=== PATIENT | female | born 1965 | race Caucasian/White ===

== ENCOUNTER 2016-05-12 11:30 | Outpatient (CLI) | payer OTHER | END 2016-05-12 11:31 | disposition home or self-care (01) | DX: G40.919 Epilepsy, unspecified, intractable, without status epilepticus (principal) ==

== ENCOUNTER 2016-06-27 08:00 | Outpatient (CLI) | payer OTHER | END 2016-06-27 08:01 | disposition home or self-care (01) | DX: R19.7 Diarrhea, unspecified (principal) ==

== ENCOUNTER 2016-08-24 14:54 | Outpatient (CLI) | payer OTHER ==
--- NOTE | 2016-08-25 07:30 | Mammography Report ---
DIGITAL BILATERAL MAMMOGRAM: 08/24/2016 CLINICAL HISTORY: A 51-year-old female in for routine screening mammogram. COMPARISON: 08/29/2013 TECHNIQUE: Craniocaudad and oblique lateral views of each breast were obtained. FINDINGS: The breasts are almost entirely composed of fat. Scattered benign-appearing calcification s are noted in each breast. No significant clusters of calcification are seen. No significant celina s are noted. No significant change is seen. IMPRESSION: BREASTS APPEAR RADIOGRAPHICALLY BENIGN. BIRADS CATEGORY 1 - NEGATIVE. RECOMMENDATIONS: Annual bilateral screening mammography. STANDARD QUALIFYING STATEMENTS 1. This examination was reviewed with the aid of Computer-Aided Detection (CAD). 2. A negative or benign imaging report should not delay biopsy if clinically suspicious findings are present. Consider surgical consultation if warranted. More than 5% of cancers are not identified by i maging. 3. Dense breasts may obscure an underlying neoplasm. 07:9:00 JOB #: [id number] EXT JOB #:[id number]
== END 2016-08-24 14:55 | disposition home or self-care (01) ==
LOC: DI.N 14:54
PROVIDERS: ATTEND Family Medicine
DX: Z12.31 Encounter for screening mammogram for malignant neoplasm of breast (principal)
CPT/HCPCS: 77067

== ENCOUNTER 2017-07-05 08:00 | Outpatient (CLI) | payer OTHER | END 2017-07-05 08:01 | disposition home or self-care (01) | LOC: LAB.WCP 08:00 | PROVIDERS: ATTEND Psychiatry & Neurology Vascular Neurology | DX: G40.219 Localization-related (focal) (partial) symptomatic epilepsy and epileptic syndromes with complex partial seizures, intractable, without status epilepticus (principal) | CPT/HCPCS: 36415; 80175 ==

== ENCOUNTER 2018-04-01 08:00 | Outpatient (CLI) | payer OTHER ==
[2018-04-01 19:02] LABS: BASOPHILS % (AUTO) 0.7 %; EOSINOPHILS # (AUTO) 0.1 10^3/uL (0.0-0.7); EOSINOPHILS % (AUTO) 1.9 %; HGB - HEMOGLOBIN 14.5 g/dL (12.0-16.0); LYMPHOCYTES # (AUTO) 2.3 10^3/uL (1.5-3.5); LYMPHOCYTES % (AUTO) 33.3 %; MEAN CORPUSCULAR HEMOGLOBIN 31.4 pg (27.0-31.0); MEAN CORPUSCULAR HGB CONC 33.4 g/dL (32.0-36.0); MEAN PLATELET VOLUME 8.1 fL (7.9-10.8); MONOCYTES # (AUTO) 0.4 10^3/uL (0.0-1.0); MONOCYTES % (AUTO) 5.9 %; NEUTROPHILS % (AUTO) 58.2 %; PLT - PLATELET COUNT 235 10^3/uL (130-450); RED BLOOD COUNT 4.61 10^6/uL (4.20-5.40); RED CELL DISTRIBUTION WIDTH 13.6 % (12.0-15.0); WHITE BLOOD COUNT 6.9 x10^3/uL (4.8-10.8)
[2018-04-01 19:47] LABS: ALBUMIN 4.2 g/dL (3.2-5.5); ALBUMIN/GLOBULIN RATIO 1.4 (1.0-2.2); ALKALINE PHOSPHATASE 115 IU/L (42-121); ALT ALANINE AMINOTRANSFERASE 24 IU/L (10-60); AST ASPARTATE AMINOTRANSFERASE 48 IU/L (10-42); BILIRUBIN,TOTAL 0.9 mg/dL (0.2-1.0); BUN - BLOOD UREA NITROGEN 11 mg/dL (6-20); CALCIUM 9.5 mg/dL (8.5-10.3); CARBON DIOXIDE - CO2 25 mmol/L (21-32); CHLORIDE 102 mmol/L (101-111); CHOL/HDL RATIO 5.4 (<4.4); CHOLESTEROL 223 mg/dL; CREATININE 0.9 mg/dL (0.4-1.0); GFR - MDRD 65 (>89); GLUCOSE 92 mg/dL (70-100); HDL CHOLESTEROL 41 mg/dL; LDL CHOLESTEROL,CALCULATED 135 mg/dL; LDL/HDL RATIO 3.3 (<4.4); SODIUM 136 mmol/L (135-145); TOTAL PROTEIN 7.3 g/dL (6.7-8.2); VLDL CHOLESTEROL 47 mg/dL
== END 2018-04-01 23:59 | disposition home or self-care (01) ==
LOC: LAB.WCP 08:00
PROVIDERS: ATTEND Family Medicine
DX: Z79.891 Long term (current) use of opiate analgesic (principal)
CPT/HCPCS: 36415; 80053; 80061; 83721; 84443; 85025

== ENCOUNTER 2018-10-08 16:39 | Emergency (ER) | payer OTHER ==
--- NOTE | 2018-10-08 18:10 | ED Physician Documentation ---
PD HPI HEAD INJURY - Stated complaint Stated Complaint: HEAD PX/GLF - Chief complaint Chief Complaint: Trauma Hd/Nk - History obtained from History obtained from: Patient - History of Present Illness Mechanism of head injury: Fell Where head injury occurred: Street Timing - onset: How many weeks ago (1) Pain level max: 0 Pain level now: 0 Location of injury: Right, Other (side/back of head) Quality of pain: Pain, Aching, Dull Associated symptoms: Nausea / vomiting, Neck pain (R sided), Seizures (seizure disorder). No: LOC, AMS, Amnesia, Paresthesias, Ear drainage, Nasal drainage Symptoms improve with: Rest Symptoms worsen with: Palpation, Movement Contributing factors: No: Anticoagulated, Intoxicated Recently seen: Not recently seen - Additional information Additional information: continues to have headache and nausea. Review of Systems Constitutional: denies: Fever, Chills GI: denies: Vomiting, Diarrhea Skin: denies: Rash Musculoskeletal: denies: Back pain Neurologic: denies: Focal weakness, Numbness, Confused, Altered mental status, LOC PD PAST MEDICAL HISTORY - Past Medical History Past Medical History: Yes Cardiovascular: None Respiratory: COPD Neuro: Seizure disorder GI: None SCRAP CUTTER: None : None HEENT: None Psych: None Musculoskeletal: Fibromyalgia Derm: None Other Past Medical History: IVIG, clotting disorder - Past Surgical History Past Surgical History: Yes General: Cholecystectomy, Appendectomy Ortho: Other - Present Medications Home Medications: Ambulatory Orders Medication Instructions Recorded Confirmed Cephalexin [Keflex] 500 mg PO Q6H #28 capsule 10/08/18 Ondansetron Odt [Zofran] 4 mg TL Q6H PRN #10 tablet 10/08/18 - Allergies Allergies/Adverse Reactions: Allergies Allergy/AdvReac Type Severity Reaction Status Date / Time Sulfa (Sulfonamide Allergy Hives Verified 10/08/18 16:51 Antibiotics) - Social History Does the pt smoke?: No Smoking Status: Never smoker Does the pt drink ETOH?: Yes Does the pt have substance abuse?: No - Immunizations Immunizations are current?: Yes - POLST Patient has POLST: No PD ED PE NORMAL - Vitals Vital signs reviewed: Yes - General General: Alert and oriented X 3, No acute distress, Well developed/nourished - HEENT HEENT: PERRL, Moist mucous membranes, Other (TTP R parietal area. no hematoma or palpable skull fracture.) - Neck Neck: Supple, no meningeal sign - Cardiac Cardiac: RRR, Strong equal pulses - Respiratory Respiratory: No respiratory distress, Clear bilaterally - Abdomen Abdomen: Soft, Non tender, Non distended, Other (2 x 2 centimeter area of erythema to the right lower abdomen. No induration. No drainage.) - Back Back: No spinal TTP - Derm Derm: Warm and dry - Neuro Neuro: Alert and oriented X 3, plush cutter 2-12 intact, No motor deficit, No sensory deficit, Normal speech Eye Opening: Spontaneous Motor: Obeys Commands Verbal: Oriented GCS Score: 15 - Psych Psych: Normal mood, Normal affect Results - Vitals Vitals: Vital Signs - 24 hr 10/08/18 10/08/18 10/08/18 16:47 18:33 18:51 Temperature 36.6 C Heart Rate 72 69 Respiratory 18 19 Rate Blood Pressure 147/117 H 147/93 H O2 Saturation 96 98 Oxygen O2 Source Room air - Rads (name of study) head CT Radiology: Prelim report reviewed, EMP read contemporaneously, See rad report (No acute abnormality) PD MEDICAL DECISION MAKING - ED course Complexity details: reviewed results, re-evaluated patient, considered differential, d/w patient, d/w family ED course: Negative head CT. Patient also has cellulitis of the right lower abdomen. Abdomen is soft, nontender nondistended. No drainable abscess. Will place on Keflex. Head injury instructions given at bedside. Patient and family counseled regarding signs and symptoms for which I believe and urgent re-ev aluation would be necessary. Patient with good understanding of and agreement to plan and is comfortable going home at this time This document was made in part using voice recognition software. While efforts are made to proofread this document, sound alike and grammatical errors may occur. Departure - Departure Disposition: 01 Home, Self Care Clinical Impression: Head injury Qualifiers: Encounter type: initial encounter Qualified Code(s): S09.90XA - Unspecified injury of head, initial encounter Concussion Qualifiers: Encounter type: initial encounter Loss of consciousness presence/duration: without LOC Qualified Code(s): S06.0X0A - Concussion without loss of consciousness, initial encounter Cellulitis Qualifiers: Site of cellulitis of trunk: abdominal wall Condition: Good Instructions: ED Infec Skin Cellulitis, ED Head Injury Closed Follow-Up: Tan Christianson DO [Primary Care Provider] - Within 1 week Prescriptions: Cephalexin [Keflex] 500 mg PO Q6H #28 capsule Ondansetron Odt [Zofran] 4 mg TL Q6H PRN #10 tablet PRN Reason: Nausea / Vomiting Comments: You can use Motrin or Tylenol as needed for pain. Return if you worsen. Your head CT is normal today. Discharge Date/Time: 10/08/18 18:51
--- NOTE | 2018-10-08 18:35 | CT Report ---
Reason: fall, head injury x1 week Procedure Date: 10/08/2018 Accession Number: [id number] / [id number] Procedure: CT - HEAD WO CPT Code: FULL RESULT: EXAM: CT HEAD EXAM DATE: 10/08/2018 06:09 PM. CLINICAL HISTORY: Fall, head injury x1 week. Hit left side of head. Nausea. COMPARISON: None. TECHNIQUE: Multiaxial CT images were obtained from the foramen magnum to the vertex. Reformats: Sagittal and coronal. IV contrast: None. In accordance with CT protocol optimization, one or more of the following dose reduction techniques were utilized for this exam: automated exposure control, adjustment of mA and/or KV based on patient size, or use of iterative reconstructive technique. FINDINGS: Parenchyma: No intraparenchymal hemorrhage. No evidence of mass, midline shift, or CT findings of infarction. White-white differentiation is distinct. Extraaxial Spaces: Normal for age. No subdural or epidural collections identified. Ventricles: Mild prominence of the ventricles. However, there is also relative prominence of the sulci for the patient's age and these findings likely represent cerebral volume loss. Sinuses and Orbits: Imaged paranasal sinuses, orbits, and mastoids show no significant abnormality. Bones: No evidence of fracture or calvarial defect. Other: None. IMPRESSION: 1. No definite acute intracranial abnormality. 2. Mild ventricular and sulcal prominence is compatible with cerebral volume loss. RADIA
[2018-10-08 18:52] VITALS: BP 147/93
== END 2018-10-08 18:51 | disposition home or self-care (01) ==
LOC: ED 16:39
DX: S06.0X0A Concussion without loss of consciousness, initial encounter (principal); M54.2 Cervicalgia; W01.0XXA Fall on same level from slipping, tripping and stumbling without subsequent striking against object, initial encounter; Y92.480 Sidewalk as the place of occurrence of the external cause; L03.311 Cellulitis of abdominal wall
CPT/HCPCS: 70450; 99284

== ENCOUNTER 2019-02-24 14:19 | Outpatient (CLI) | payer OTHER ==
--- NOTE | 2019-02-27 09:08 | Mammography Report ---
Reason: SCREENING MAMMO Procedure Date: 02/24/2019 Accession Number: [id number] / [id number] Procedure: MGN - Screening Mammo Dig Bilat CPT Code: Final Report FULL RESULT: EXAM: Screening Mammo Dig Bilat DATE: 02/24/2019 2:50 PM CLINICAL HISTORY: Screening encounter. History of nulliparity. History of endometrial cancer. TECHNIQUE: (B) - Bilateral CC and MLO views were obtained. COMPARISON: 08/24/2016 and 08/29/2013. PARENCHYMAL PATTERN: (A) - The breast(s) demonstrate(s) scattered fibroglandular densities. FINDINGS: There are coarse typically benign calcifications. There are no suspicious masses, calcifications, or areas of distortion. IMPRESSION: Benign findings. BI-RADS category 2. RECOMMENDATION: (ANNUAL) - Recommend routine annual screening mammography. BI-RADS CATEGORY: (2) - Benign Findings. STANDARD QUALIFYING STATEMENTS: 1. This examination was not reviewed with the aid of Computer-Aided Detection (CAD). 2. A negative or benign imaging report should not preclude biopsy if clinically suspicious findings are present. 3. Dense breasts may obscure an underlying neoplasm. 4. This examination was reviewed without the aid of 3D breast imaging (tomosynthesis).
== END 2019-02-24 14:20 | disposition home or self-care (01) ==
LOC: DI.N 14:19
DX: Z12.31 Encounter for screening mammogram for malignant neoplasm of breast (principal); Z85.42 Personal history of malignant neoplasm of other parts of uterus
CPT/HCPCS: 77067

== ENCOUNTER 2019-03-16 14:15 | Outpatient (CLI) | payer OTHER | END 2019-03-16 23:59 | disposition home or self-care (01) | LOC: LAB.R 14:15 | PROVIDERS: ATTEND Family Medicine | DX: N39.0 Urinary tract infection, site not specified (principal) | CPT/HCPCS: 87077; 87086; 87181 ==

== ENCOUNTER 2019-03-31 10:09 | Outpatient (CLI) | payer OTHER ==
--- NOTE | 2019-04-01 05:02 | XRAY Report ---
Reason: LEFT KNEE PAIN Procedure Date: 03/31/2019 Accession Number: [id number] / [id number] Procedure: WCP - Knee 3 View LT CPT Code: Final Report FULL RESULT: EXAM: LEFT KNEE RADIOGRAPHY EXAM DATE: 03/31/2019 10:26 AM. CLINICAL HISTORY: LEFT KNEE PAIN. COMPARISON: None. TECHNIQUE: 3 views. FINDINGS: There is no evidence of fracture or dislocation. No bone lesion is seen. There is mild tricompartmental narrowing. No joint effusion is seen. There is no focal soft tissue swelling. IMPRESSION: Mild tricompartmental degenerative changes. RADIA
== END 2019-03-31 23:59 | disposition home or self-care (01) ==
LOC: DI.WCP 10:09
PROVIDERS: ATTEND Family Medicine
DX: M17.12 Unilateral primary osteoarthritis, left knee (principal)

== ENCOUNTER 2019-04-28 07:00 | Outpatient (CLI) | payer OTHER | END 2019-04-28 23:59 | disposition home or self-care (01) | LOC: LAB.R 07:00 | PROVIDERS: ATTEND Nurse Practitioner Family | DX: R05 Cough (principal) | CPT/HCPCS: 87275; 87276 ==

== ENCOUNTER 2019-04-28 15:49 | Outpatient (CLI) | payer OTHER ==
--- NOTE | 2019-04-29 06:34 | XRAY Report ---
Reason: COUGH Procedure Date: 04/28/2019 Accession Number: [id number] / [id number] Procedure: WCP - Chest 2 View X-Ray CPT Code: 02654 Final Report FULL RESULT: EXAM: CHEST RADIOGRAPHY EXAM DATE: 04/28/2019 03:49 PM. CLINICAL HISTORY: COUGH. COMPARISON: CHEST 2 VIEW PA/LAT 09/13/2017 2:59 PM. TECHNIQUE: 2 views. FINDINGS: The mediastinal and cardiac silhouettes are normal. The lungs are clear. There is no pleural effusion or pneumothorax. There is a mid thoracic levocurvature. IMPRESSION: Clear lungs. RADIA
== END 2019-04-28 23:59 | disposition home or self-care (01) ==
LOC: DI.WCP 15:49
PROVIDERS: ATTEND Nurse Practitioner Family
DX: R05 Cough (principal)
CPT/HCPCS: 71046; 87275; 87276

== ENCOUNTER 2019-05-23 13:18 | Outpatient (CLI) | payer OTHER | END 2019-05-23 13:19 | disposition home or self-care (01) | LOC: COV 13:18 | PROVIDERS: ATTEND Family Medicine | DX: R05 Cough (principal); R50.9 Fever, unspecified | CPT/HCPCS: 81599 ==

== ENCOUNTER 2019-09-19 10:00 | Outpatient (CLI) | payer OTHER | END 2019-09-19 23:59 | disposition home or self-care (01) | LOC: LAB.R 10:00 | PROVIDERS: ATTEND Family Medicine | DX: D80.1 Nonfamilial hypogammaglobulinemia (principal); Z20.828 Contact with and (suspected) exposure to other viral communicable diseases ==

== ENCOUNTER 2020-01-29 16:30 | Outpatient (CLI) | payer OTHER | END 2020-01-29 23:59 | disposition home or self-care (01) | LOC: LAB.R 16:30 | PROVIDERS: ATTEND Family Medicine | DX: R05 Cough (principal); Z20.828 Contact with and (suspected) exposure to other viral communicable diseases ==

== ENCOUNTER 2020-01-29 17:24 | Outpatient (CLI) | payer OTHER ==
--- NOTE | 2020-01-29 17:26 | XRAY Report ---
PROCEDURE: Chest 2 View X-Ray INDICATIONS: COUGH TECHNIQUE: 2 view(s) of the chest. COMPARISON: 09/13/2017, 04/28/2019 FINDINGS: Surgical changes and devices: None. Lungs and pleura: No pleural effusions or pneumothorax. Lungs are clear. Mediastinum: Mediastinal contours are normal. Heart size is normal. Bones and chest wall: No suspicious bony abnormalities. Soft tissues appear unremarkable. IMPRESSION: No acute cardiopulmonary process demonstrated radiographically. Reviewed by: Kishore Silva MD on 01/29/2020 5:24 PM PST Approved by: Kishore Silva MD on 01/29/2020 5:24 PM PST Station ID: [id number]
== END 2020-01-29 23:59 | disposition home or self-care (01) ==
LOC: DI.N 17:24
PROVIDERS: ATTEND Family Medicine
DX: R05 Cough (principal)

== ENCOUNTER 2020-04-01 08:00 | Outpatient (CLI) | payer OTHER | END 2020-04-01 23:59 | disposition home or self-care (01) | LOC: LAB.R 08:00 | PROVIDERS: ATTEND Family Medicine | DX: R05 Cough (principal); Z20.822 Contact with and (suspected) exposure to COVID-19 ==

== ENCOUNTER 2020-09-20 15:04 | Emergency (ER) | payer OTHER ==
[2020-09-20 15:18] VITALS: BP 166/96
--- NOTE | 2020-09-20 16:03 | ED Physician Documentation ---
History of Present Illness - Stated complaint Stated Complaint: SOA/SORE THROAT - Chief complaint Chief Complaint: Resp - History obtained from History obtained from: Patient - History of Present Illness Timing: Today Pain level max: 0 Pain level now: 0 - Additonal information Additional information: Patient is a 55-year-old female with multiple medical issues. She is on chronic IVIG infusions. Has a chronic COPD-like illness that results in recurrent bronchial infections. She has chronic thrombocytopenia. She states that when she becomes ill her gas utility worker normally places her on steroids, Tessalon and antibiotic. Patient has had her Covid vaccinations but is concerned about the delta variant. Patient has had cough, congestion, body aches and intermittent fevers for the past 3 days. Nothing makes it better or worse. Review of Systems Constitutional: reports: Fever (Subjective), Chills Nose: reports: Rhinorrhea / runny nose, Congestion Throat: reports: Sore throat Cardiac: denies: Chest pain / pressure Respiratory: reports: Dyspnea, Cough, Wheezing GI: reports: Nausea. denies: Abdominal Pain, Vomiting, Diarrhea Skin: denies: Rash Musculoskeletal: denies: Neck pain, Back pain Neurologic: denies: Headache PD PAST MEDICAL HISTORY - Past Medical History Cardiovascular: None Respiratory: COPD Neuro: Seizure disorder GI: None MERCHANDISE WORKER: None : None HEENT: None Psych: None Musculoskeletal: Fibromyalgia Derm: None - Past Surgical History Past Surgical History: Yes General: Cholecystectomy, Appendectomy Ortho: Other - Present Medications Home Medications: Ambulatory Orders Medication Instructions Recorded Confirmed Albuterol Sulfate [Proair Hfa 09/20/20 Inhaler] Albuterol Sulfate [Proair Hfa 1 - 2 puffs INH Q4H PRN 09/20/20 09/20/20 Inhaler] Beclomethasone Dipropionate [Qvar 09/20/20 Redihaler (80 mcg)] Benzonatate [Tessalon] 200 mg PO TID PRN #30 cap 09/20/20 Doxycycline Hyclate 100 mg PO BID #20 tab 09/20/20 Gabapentin [Gralise] 300 mg PO TID 09/20/20 09/20/20 Lamotrigine [Lamictal (Blue)] 1 tab PO BID 09/20/20 09/20/20 Omeprazole [PriLOSEC] 1 tab PO DAILY 09/20/20 09/20/20 Tiotropium [place] [Spiriva] 1 - 2 puffs PO DAILY 09/20/20 09/20/20 Tiotropium [place] [Spiriva] 2 puffs PO BID 09/20/20 09/20/20 amLODIPine [Norvasc] 1 tab PO DAILY 09/20/20 09/20/20 lamoTRIgine [Lamictal Xr] 450 mg PO BID 09/20/20 09/20/20 predniSONE [Deltasone] 10 mg PO [id number] #42 tab 09/20/20 - Allergies Allergies/Adverse Reactions: Allergies Allergy/AdvReac Type Severity Reaction Status Date / Time amoxicillin Allergy Emesis Verified 09/20/20 15:43 Sulfa (Sulfonamide Allergy Hives Verified 09/20/20 15:43 Antibiotics) - Social History Does the pt smoke?: No Smoking Status: Never smoker Does the pt drink ETOH?: Yes Does the pt have substance abuse?: No - Immunizations Immunizations are current?: Yes - POLST Patient has POLST: No PD ED PE NORMAL - Vitals Vital signs reviewed: Yes - General General: Alert and oriented X 3, No acute distress - HEENT HEENT: Moist mucous membranes - Neck Neck: Supple, no meningeal sign - Cardiac Cardiac: RRR, Strong equal pulses - Respiratory Respiratory: No respiratory distress, Other (Mild wheezing bilaterally) - Abdomen Abdomen: Soft, Non tender, Non distended - Derm Derm: Warm and dry - Extremities Extremities: No edema, No calf tenderness / cord - Neuro Neuro: Alert and oriented X 3 Results - Vitals Vitals: Vital Signs - 24 hr 09/20/20 15:15 Temperature 36.0 C L Heart Rate 93 Respiratory 20 Rate Blood Pressure 166/96 H O2 Saturation 97 Oxygen O2 Source Room air PD MEDICAL DECISION MAKING - ED course Complexity details: considered differential, d/w patient ED course: Patient is well-appearing, nontoxic. Afebrile. No hypoxia. No respiratory distress. Did discuss an x-ray, but patient declines this is we will just treat her empirically with doxycycline, steroids and Tessalon given her multiple medical issues and recurrent bronchial infections. Covid swab performed. She has had her Covid vaccination. No hypoxia or respiratory distress. Patient and family counseled regarding signs and symptoms for which I believe and urgent re-evaluation would be necessary. Patient with good understanding of and agreement to plan and is comfortable going home at this time This document was made in part using voice recognition software. While efforts are made to proofread this document, sound alike and grammatical errors may occur. Departure - Departure Disposition: 01 Home, Self Care Clinical Impression: Viral URI with cough, Bronchitis Condition: Good Instructions: ED Bronchitis Asthmatic Follow-Up: Tan Christianson DO [Primary Care Provider] - Within 1 week Prescriptions: predniSONE [Deltasone] 10 mg PO [id number] #42 tab Doxycycline Hyclate 100 mg PO BID #20 tab Benzonatate [Tessalon] 200 mg PO TID PRN #30 cap PRN Reason: Cough Comments: Your prescriptions were sent to [facility] in [place]. Your Covid test was sent today as well. Follow-up with your doctor as needed for further care. Take all antibiotics until gone. Return if you worsen. Discharge Date/Time: 09/20/20 16:14
== END 2020-09-20 16:14 | disposition home or self-care (01) ==
LOC: ED 15:04
DX: J06.9 Acute upper respiratory infection, unspecified (principal); J40 Bronchitis, not specified as acute or chronic; Z20.822 Contact with and (suspected) exposure to COVID-19
CPT/HCPCS: 99283; 99284

== ENCOUNTER 2021-04-25 12:08 | Outpatient (CLI) | payer OTHER | END 2021-04-25 12:09 | disposition home or self-care (01) | LOC: LAB.N 12:08 | PROVIDERS: ATTEND Family Medicine | DX: Z53.9 Procedure and treatment not carried out, unspecified reason (principal) | CPT/HCPCS: 36415; 80053; 80061; 83721; 84443; 85025 ==

== ENCOUNTER 2022-10-26 07:13 | Emergency (ER) | payer OTHER ==
[2022-10-26 07:30] VITALS: O2SAT 99
[2022-10-26] MEDS ORDERED: HYDROcod/ACETAM 5/325 MG TABLET PO STA (08:56)
[2022-10-26] MEDS ORDERED: LIDOCAINE PATCH 5% TOP STA (08:57)
--- NOTE | 2022-10-26 09:07 | ED Physician Documentation ---
History of Present Illness - Stated complaint Stated Complaint: BACK PX - Chief complaint Chief Complaint: Back Pain - History obtained from History obtained from: Patient - Additonal information Additional information: Patient is a 57-year-old female with a history of ataxia presenting for evaluation of multiple areas of pain with recent falls. Patient states she falls often but this morning had worsening pain related to recent falls. She reports the falls are from standing and not from any significant height or down stairs. She does not take a blood thinner. She denies LOC. She has hit her head most recently 2 days ago. She reports pain primarily behind the left shoulder and to the lower back. She uses Tylenol with codeine without any significant improvement. Review of Systems Constitutional: denies: Fever Cardiac: denies: Chest pain / pressure Respiratory: denies: Dyspnea GI: denies: Abdominal Pain Musculoskeletal: reports: Back pain Neurologic: reports: Head injury PD PAST MEDICAL HISTORY - Past Medical History Past Medical History: Yes Cardiovascular: None Respiratory: COPD Neuro: Seizure disorder GI: None PROCESS ENG: None : None HEENT: None Psych: None Musculoskeletal: Fibromyalgia Derm: None - Past Surgical History Past Surgical History: Yes General: Cholecystectomy, Appendectomy Ortho: Other - Present Medications Home Medications: Ambulatory Orders Medication Instructions Recorded Confirmed Albuterol Sulfate [Proair Hfa 09/20/20 Inhaler] Albuterol Sulfate [Proair Hfa 1 - 2 puffs INH Q4H PRN 09/20/20 07/17/22 Inhaler] Beclomethasone Dipropionate [Qvar 09/20/20 Redihaler (80 mcg)] Benzonatate [Tessalon] 200 mg PO TID PRN #30 cap 09/20/20 Doxycycline Hyclate 100 mg PO BID #20 tab 09/20/20 Gabapentin [Gralise] 300 mg PO TID 09/20/20 07/17/22 Lamotrigine [Lamictal (Blue)] 1 tab PO BID 09/20/20 07/17/22 Omeprazole [PriLOSEC] 1 tab PO DAILY 09/20/20 07/17/22 Tiotropium [place] [Spiriva] 1 - 2 puffs PO DAILY 09/20/20 09/20/20 Tiotropium [place] [Spiriva] 2 puffs PO BID 09/20/20 07/17/22 amLODIPine [Norvasc] 1 tab PO DAILY 09/20/20 07/17/22 lamoTRIgine [Lamictal Xr] 450 mg PO BID 09/20/20 07/17/22 predniSONE [Deltasone] 10 mg PO [id number] #42 tab 09/20/20 07/17/22 HYDROcod/ACETAM 5/325 [[place] 5/325] 1 - 2 tab PO Q6H PRN #25 tablet 07/17/22 HYDROcod/ACETAM 5/325 [[place] 5/325] 1 tablet PO Q6H PRN #12 tablet 10/26/22 Lidocaine Patch 5% [Lidoderm Patch] 1 patch TOP DAILY PRN #10 patch 10/26/22 - Allergies Allergies/Adverse Reactions: Allergies Allergy/AdvReac Type Severity Reaction Status Date / Time amoxicillin Allergy Emesis Verified 07/17/22 16:04 Sulfa (Sulfonamide Allergy Hives Verified 07/17/22 16:04 Antibiotics) titanium Allergy Unknown Verified 07/17/22 16:05 - Social History Does the pt smoke?: No Smoking Status: Never smoker Does the pt drink ETOH?: Yes Does the pt have substance abuse?: No - Immunizations Immunizations are current?: Yes - POLST Patient has POLST: No PD ED PE NORMAL - General General: Alert and oriented X 3, No acute distress, Well developed/nourished - HEENT HEENT: Atraumatic, Moist mucous membranes - Neck Neck: Supple, no meningeal sign, No bony TTP, C-Spine cleared by NEXUS criteria - Cardiac Cardiac: RRR, No murmur - Respiratory Respiratory: No respiratory distress, Clear bilaterally - Abdomen Abdomen: Soft, Non tender - Back Back: No spinal TTP, Other (Low back tenderness to palpation with no step-offs or noted deformities, tenderness behind left shoulder with some pain on range of motion of left shoulder) - Derm Derm: Warm and dry - Extremities Extremities: No deformity - Neuro Neuro: Alert and oriented X 3, No motor deficit, No sensory deficit, Normal speech Eye Opening: Spontaneous Motor: Obeys Commands Verbal: Oriented GCS Score: 15 Results - Vitals Vitals: Vital Signs - 24 hr 10/26/22 10/26/22 07:23 11:30 Temperature 36.4 C L Heart Rate 103 H 86 Respiratory 20 20 Rate Blood Pressure 189/115 H 158/98 H O2 Saturation 99 99 Oxygen O2 Source Room air PD Medical Decision Making - ED course Complexity details: reviewed results, re-evaluated patient, d/w patient ED course: Pt is a 57 yo Female presenting for evaluation of back, head, pelvic and shoulder pain after several falls over the past few days. Patient has a history of ataxia and frequent falls. She is not on a blood thinner. However due to her underlying ataxia As a neuro symptom I did think that obtaining a head CT was warranted. I reviewed her CT images of head and lumbar spine. No signs of intracranial hemorrhage on CT head. X-rays of pelvis and left shoulder were also obtained without findings of a fracture. Patient is feeling better here with oral pain medication. She is counseled on continued supportive care as well as need for follow-up with her primary care provider and neurologist. Departure - Departure Disposition: 01 Home, Self Care Clinical Impression: Falls frequently, Shoulder pain, left, Low back strain Condition: Stable Instructions: ED Low Back Pain Injury, ED Strain Muscle Ext Follow-Up: Elvia Ferris ARNP [Primary Care Provider] - Prescriptions: Lidocaine Patch 5% [Lidoderm Patch] 1 patch TOP DAILY PRN #10 patch PRN Reason: pain HYDROcod/ACETAM 5/325 [[place] 5/325] 1 tablet PO Q6H PRN #12 tablet PRN Reason: Pain Comments: Your x-rays and CT scan do not show any broken bones from your falls. I have sent a small prescription of narcotic pain medication and lidocaine patches to [facility] in [place]. I would recommend close follow-up with your primary care provider and continued follow-up with your neurologist regarding your ataxia. I am prescribing a short course of narcotic pain medication for you. These are potentially dangerous and addictive medications that should be used carefully. These medications may constipate you. Take an dmkg-kmy-egjskky stool softener (docusate) twice daily with plenty of water while taking these medications. If you go 24 hours without a bowel movement, take lxyk-hxv-tswonal miralax, per package instructions. Do not drink or drive while taking these medications. If you received narcotic or sedating medications while in the emergency department, do not drive for 24 hours. Store this medication in a safe, secure place and out of reach of children. It is a violation of federal law to give or sell this medication to another person or to use in a manner other than prescribed. The ED will not refill narcotic prescriptions, including prescriptions lost or stolen. To dispose of unwanted medications: 1. [facility] at [address] in [place] has a medication drop box. They accept prescription medications (in pill form) Wednesday through Wednesday 9:00 a.m. to 5:00 p.m. 2. [facility] [employer] accepts prescription medications (in pill form only) for disposal year round. Call for more information. 3. Contact the [facility] for the next [facility] sponsored prescription drug collection event. , [phone], or [phone]; Note that many narcotic pain relievers also contain Tylenol/acetaminophen. Please ensure that your total dose of acetaminophen from all sources does not exceed 3 g (3000 mg) per day. Forms: Activity restrictions Discharge Date/Time: 10/26/22 11:31
--- NOTE | 2022-10-26 09:59 | XRAY Report ---
PROCEDURE: Shoulder 3 View LT INDICATIONS: fall/pain TECHNIQUE: 3 views of the shoulder were acquired. COMPARISON: None. FINDINGS: Bones: No fractures or dislocations. No suspicious bony lesions. Visualized ribs appear intact. Soft tissues: No suspicious soft tissue calcifications. IMPRESSION: No acute bony abnormality. Reviewed by: Tom Rausch on 10/26/2022 9:58 AM PDT Approved by: Tom Rausch on 10/26/2022 9:58 AM PDT Station ID: [id number]
--- NOTE | 2022-10-26 10:03 | CT Report ---
PROCEDURE: HEAD WO INDICATIONS: multiple falls TECHNIQUE: Noncontrast 4.5 mm thick angled axial sections acquired from the foramen magnum to the vertex. For r adiation dose reduction, the following was used: automated exposure control, adjustment of mA and/or kV according to patient size. COMPARISON: CT head 10/08/2018 FINDINGS: Image quality: Excellent. CSF spaces: Basal cisterns are patent. No extra-axial fluid collections. There is a mild ventricula r prominence, slightly more conspicuous when compared to 2019. Brain: Mild parenchymal atrophy is present. No midline shift. No intracranial masses or hemorrhage. White-white matter interface is normal. Skull and face: Calvarium and visualized facial bones are intact, without suspicious lesions. Sinuses: Visualized sinuses and mastoids are clear. IMPRESSION: Mild atrophy, greater than expected for patient's stated age. Mild ventricular prominence slightly disproportionate to cortical atrophy. While this could represent a more central atrophy pattern, etiology such as normal pressure hydrocephalus should be considered. Reviewed by: Odalis Bates MD on 10/26/2022 10:01 AM PDT Approved by: Odalis Bates MD on 10/26/2022 10:01 AM PDT Station ID: [id number]
--- NOTE | 2022-10-26 10:05 | CT Report ---
PROCEDURE: LUMBAR SPINE WO INDICATIONS: multiple falls/pain TECHNIQUE: Noncontrast 3 mm thick sections acquired from the T12 level to the sacrum. Sagittal and coronal refo rmats were constructed. For radiation dose reduction, the following was used: automated exposure co ntrol, adjustment of mA and/or kV according to patient size. COMPARISON: None. FINDINGS: Image quality: Excellent. Bones: There is normal bony alignment. No acute vertebral body compression fractures. No suspiciou s lytic or blastic bony lesions. Multiple scattered mild disc bulges mild canal narrowing at L3-4 and L4-5. Mild foraminal narrowing is also present at L3-4 and L4-5. No pars defects. Soft tissues: No retroperitoneal masses or hematomas. Visualized aorta is normal in caliber. IMPRESSION: Mild early degenerative changes as above. No visualized fracture. Reviewed by: Odalis Bates MD on 10/26/2022 10:04 AM PDT Approved by: Odalis Bates MD on 10/26/2022 10:04 AM PDT Station ID: [id number]
--- NOTE | 2022-10-26 10:32 | XRAY Report ---
PROCEDURE: Pelvis 1 View INDICATIONS: fall TECHNIQUE: 1 view(s) of the pelvis acquired. COMPARISON: None. FINDINGS: Bones: No fractures or dislocations. Mild bilateral hip joint degeneration. No suspicious bony lesio ns. Soft tissues: Visualized bowel gas pattern is normal. No suspicious soft tissue calcifications. IMPRESSION: No acute bony abnormality. Reviewed by: Rubi Gentile MD on 10/26/2022 10:31 AM PDT Approved by: Rubi Gentile MD on 10/26/2022 10:31 AM PDT Station ID: [id number]
[2022-10-26 11:34] VITALS: BP 158/98
== END 2022-10-26 11:31 | disposition home or self-care (01) ==
LOC: ED 07:13
DX: M25.512 Pain in left shoulder (principal); S39.012A Strain of muscle, fascia and tendon of lower back, initial encounter; W19.XXXA Unspecified fall, initial encounter; R27.0 Ataxia, unspecified; R29.6 Repeated falls
CPT/HCPCS: 70450; 72131; 72170; 73030; 99284; A9270

== ENCOUNTER 2023-04-22 12:49 | Emergency (ER) | payer OTHER ==
--- NOTE | 2023-04-22 14:55 | ED Physician Documentation ---
PD HPI HEAD INJURY - Stated complaint Stated Complaint: GLF/HEAD INJ - Chief complaint Chief Complaint: Trauma Hd/Nk - Additional information Additional information: 58-year-old female presents emergency department after experiencing ground-level fall around 6 AM this morning. 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 Patient was also told that she has some sort of platelet disorders but does not know the name of disease but that she is prone to bleeding and is not able to take NSAIDs because of this. Per patient she was walking in the bathroom and somehow lost her balance and fell onto her right side originally and then onto her left side. She hit the left portion of her forehead not lose consciousness as well as her left wrist. The day left eye swelling has gotten significantly worse she now has a black eye she is unable to open her left eye at all. She reports also mild neck pain as well as mild nausea throughout the day with no emesis. She denies any confusion or altered mental status. PD PAST MEDICAL HISTORY - Past Medical History Past Medical History: Yes Cardiovascular: None Respiratory: COPD Neuro: Seizure disorder GI: None RESEARCH LIBRARIAN: None : None HEENT: None Psych: None Musculoskeletal: Fibromyalgia Derm: None - Past Surgical History Past Surgical History: Yes General: Cholecystectomy, Appendectomy Ortho: Other - Present Medications Home Medications: Ambulatory Orders Medication Instructions Recorded Confirmed Albuterol Sulfate [Proair Hfa 09/20/20 Inhaler] Albuterol Sulfate [Proair Hfa 1 - 2 puffs INH Q4H PRN 09/20/20 07/17/22 Inhaler] Beclomethasone Dipropionate [Qvar 09/20/20 Redihaler (80 mcg)] Benzonatate [Tessalon] 200 mg PO TID PRN #30 cap 09/20/20 Doxycycline Hyclate 100 mg PO BID #20 tab 09/20/20 Gabapentin [Gralise] 300 mg PO TID 09/20/20 07/17/22 Lamotrigine [Lamictal (Blue)] 1 tab PO BID 09/20/20 07/17/22 Omeprazole [PriLOSEC] 1 tab PO DAILY 09/20/20 07/17/22 Tiotropium [place] [Spiriva] 1 - 2 puffs PO DAILY 09/20/20 09/20/20 Tiotropium [place] [Spiriva] 2 puffs PO BID 09/20/20 07/17/22 amLODIPine [Norvasc] 1 tab PO DAILY 09/20/20 07/17/22 lamoTRIgine [Lamictal Xr] 450 mg PO BID 09/20/20 07/17/22 predniSONE [Deltasone] 10 mg PO [id number] #42 tab 09/20/20 07/17/22 HYDROcod/ACETAM 5/325 [[place] 5/325] 1 - 2 tab PO Q6H PRN #25 tablet 07/17/22 HYDROcod/ACETAM 5/325 [[place] 5/325] 1 tablet PO Q6H PRN #12 tablet 10/26/22 Lidocaine Patch 5% [Lidoderm Patch] 1 patch TOP DAILY PRN #10 patch 10/26/22 oxyCODONE [Roxicodone] 5 mg PO ONCE #12 tablet 04/22/23 polyethylene glycoL 3350 [Miralax] 17 gm PO DAILY PRN #30 packet 04/22/23 - Allergies Allergies/Adverse Reactions: Allergies Allergy/AdvReac Type Severity Reaction Status Date / Time amoxicillin Allergy Emesis Verified 04/22/23 12:51 Sulfa (Sulfonamide Allergy Hives Verified 04/22/23 12:51 Antibiotics) titanium Allergy Unknown Verified 04/22/23 12:51 - Social History Does the pt smoke?: No Smoking Status: Never smoker Does the pt drink ETOH?: Yes Does the pt have substance abuse?: No - Immunizations Immunizations are current?: Yes - POLST Patient has POLST: No PD ED PE NORMAL - Vitals Vital signs reviewed: Yes - General General: Alert and oriented X 3, Well developed/nourished - HEENT HEENT: PERRL, EOMI, Ears normal, Other (Severe left periorbital swelling, intraoccular pressure=29) - Neck Neck: No bony TTP - Cardiac Cardiac: RRR - Respiratory Respiratory: No respiratory distress, Clear bilaterally - Abdomen Abdomen: Normal bowel sounds - Back Back: No spinal TTP - Derm Derm: Other (severe bruising to left eye) - Extremities Extremities: Other (left wrist pain and mild swelling to the ulnar aspect) - Neuro Neuro: Alert and oriented X 3, ordinary seaman 2-12 intact, No motor deficit, Normal speech Results - Vitals Vitals: Vital Signs - 24 hr 04/22/23 04/22/23 04/22/23 12:51 15:34 16:00 Temperature 36.8 C Heart Rate 100 101 H 93 Respiratory 16 16 16 Rate Blood Pressure 160/90 H 183/112 H 172/93 H O2 Saturation 100 100 99 04/22/23 17:59 Temperature Heart Rate 80 Respiratory 16 Rate Blood Pressure 167/97 H O2 Saturation 97 Oxygen O2 Source Room air - Labs Labs: Laboratory Tests 04/22/23 04/22/23 15:21 15:21 WBC 7.5 RBC 4.60 Hgb 14.2 Hct 42.2 MCV 91.7 MCH 30.9 MCHC 33.6 RDW 13.1 Plt Count 188 MPV 9.3 Neut # (Auto) 5.2 Lymph # (Auto) 1.6 [place] # (Auto) 0.5 Eos # (Auto) 0.1 Baso # (Auto) 0.1 Absolute Nucleated RBC 0.00 Nucleated RBC % 0.0 Sodium 142 Potassium 3.8 Chloride 104 Carbon Dioxide 31 Anion Gap 7.0 BUN 6 Creatinine 0.9 Estimated GFR (MDRD) 64 L Glucose 104 Calcium 9.8 Total Bilirubin 0.8 AST 53 H ALT 22 Alkaline Phosphatase 98 Total Protein 7.0 Albumin 4.7 Globulin 2.3 Albumin/Globulin Ratio 2.0 - Rads (name of study) Left wrist x-ray Relevant Findings:: Final report received, EMP independent interpretation of test (Left hand soft tissue swelling mostly to the ulnar aspect. No acute fractures or dislocations.), Other head ct wo Relevant Findings:: Final report received, EMP independent interpretation of test (No intracranial hemorrhage or other acute abnormalities.), Other Cervical CT WO Relevant Findings:: Final report received, EMP independent interpretation of test, Other (No fractures other acute abnormalities or findings) CT orbits w Relevant Findings:: Final report received, EMP independent interpretation of test, Other (Left orbital blowout fracture, no entrapment seen. layering blood to left maxillary sinus) PD Medical Decision Making - ED course ED course: 58-year-old female presents emergency department for left eye swelling and pain after experiencing a ground-level fall. Also complaining of left wrist pain. X-rays completed of her left wrist which did not reveal any acute fractures or other abnormalities. She does have full range of motion to the left wrist. All labs complete, no anemia, no leukocytosis seen on CBC, chemistry overall unremarkable, GFR is slightly low at 64, kidney function within normal limits, AST slightly elevated at 53. CT head without as well as CT cervical spine also complete which did not reveal any acute abnormalities no intracranial hemorrhages or cervical spine fractures. CT orbits with was also complete which did reveal a left orbital blowout fracture. There is no entrapment she has full extraocular movement of the left eye. Intraocular pressure was 29 this was repeated twice not concerned about compartment syndrome at this time to the left eye. Patient was given strict ER return precautions. She was also given a prescription of pain meds to help with her left eye/facial pain. I am prescribing a short course of short-acting opioid pain medication for this patient. I have reviewed the patients LINUX SYSTEM ADMIN and no concerning findings were noted. I have discussed that the opioids are for short term therapy only, and will not be refilled from the ED. A referral was sent to Dr. Guzman local maxillofacial surgeon she was also given their contact information as well to make sure that she is able to follow-up with them outpatient. She was informed to not blow her nose and if she needs to sneeze to make sure she sneeze with mouth open. All questions answered safe for discharge at this time. Departure - Departure Disposition: 01 Home, Self Care Clinical Impression: Closed blow-out fracture of left orbital floor, Ground-level fall, Hematoma of left eye region Contusion of left wrist Qualifiers: Encounter type: initial encounter Qualified Code(s): S60.212A - Contusion of left wrist, initial encounter Head injury Qualifiers: Encounter type: initial encounter Qualified Code(s): S09.90XA - Unspecified injury of head, initial encounter Condition: Good Instructions: ED Fx Face Follow-Up: FLORA GUZMAN [Physician No Access] - Prescriptions: polyethylene glycoL 3350 [Miralax] 17 gm PO DAILY PRN #30 packet PRN Reason: Constipation oxyCODONE [Roxicodone] 5 mg PO ONCE #12 tablet Comments: Thank you for trusting us with your care. We have completed a CT scan of your face head and neck and this revealed that you have a left orbital blowout fracture. As we discussed going home do not blow your nose and if you need to sneeze make sure your mouth is open. I have already filled out referral to Dr. Guzman, [place] to [place] soon. We are sending you home with a CD make sure that you bring this to your follow-up appointment so a maxillofacial surgeon can review the images that we have completed here in the emergency department. I sent a prescription of oxycodone and MiraLAX to [facility] in [place] to help with your pain. Make sure you take the MiraLAX with the oxycodone to prevent against getting constipation. I am prescribing a short course of narcotic pain medication for you. These are potentially dangerous and addictive medications that should be used carefully. These medications may constipate you. Take an tmfl-kaw-hxfhkga stool softener (docusate) twice daily with plenty of water while taking these medications. If you go 24 hours without a bowel movement, take azti-[id number]-[id number] miralax, per package instructions. Do not drink or drive while taking these medications. If you received narcotic or sedating medications while in the emergency department, do not drive for 24 hours. Store this medication in a safe, secure place and out of reach of children. It is a violation of federal law to give or sell this medication to another person or to use in a manner other than prescribed. The ED will not refill narcotic prescriptions, including prescriptions lost or stolen. To dispose of unwanted medications: 1. [facility] at [address] in [place] has a medication drop box. They accept prescription medications (in pill form) Wednesday through Wednesday 9:00 a.m. to 5:00 p.m. 2. The [facility] accepts prescription medications (in pill form only) for disposal year round. Call for more information. 3. Contact the [facility] for the next [facility] sponsored prescription drug collection event. , [phone], or [phone]; Note that many narcotic pain relievers also contain Tylenol/acetaminophen. Please ensure that your total dose of acetaminophen from all sources does not exceed 3 g (3000 mg) per day. Forms: PCP List Discharge Date/Time: 04/22/23 18:55
[2023-04-22 15:26] LABS: BASOPHILS # (AUTO) 0.1 10^3/uL (0.0-0.1); BASOPHILS % (AUTO) 0.7 %; EOSINOPHILS # (AUTO) 0.1 10^3/uL (0.0-0.7); EOSINOPHILS % (AUTO) 0.8 %; HCT - HEMATOCRIT 42.2 % (37.0-47.0); HGB - HEMOGLOBIN 14.2 g/dL (12.0-16.0); LYMPHOCYTES # (AUTO) 1.6 10^3/uL (1.5-3.5); LYMPHOCYTES % (AUTO) 21.5 %; MEAN CORPUSCULAR HEMOGLOBIN 30.9 pg (27.0-31.0); MEAN CORPUSCULAR HGB CONC 33.6 g/dL (32.0-36.0); MEAN CORPUSCULAR VOLUME 91.7 fL (81.0-99.0); MEAN PLATELET VOLUME 9.3 fL (7.9-10.8); MONOCYTES # (AUTO) 0.5 10^3/uL (0.0-1.0); MONOCYTES % (AUTO) 6.9 %; NEUTROPHILS # (AUTO) 5.2 10^3/uL (1.5-6.6); NEUTROPHILS % (AUTO) 69.4 %; PLT - PLATELET COUNT 188 10^3/uL (130-450); RED CELL DISTRIBUTION WIDTH 13.1 % (12.0-15.0); WHITE BLOOD COUNT 7.5 x10^3/uL (4.8-10.8)
[2023-04-22] MEDS: HYDROmorphone 0.5 MG/0.5 ML SYRINGE IVP STA (15:28)
--- NOTE | 2023-04-22 15:38 | XRAY Report ---
PROCEDURE: Wrist 3+V LT INDICATIONS: left wrist pain post GLF TECHNIQUE: 4 views of the wrist were acquired. COMPARISON: None. FINDINGS: Bones: Diffuse osteopenia. No fractures or dislocations. No suspicious bony lesions. Soft tissues: No suspicious soft tissue calcifications or masses. Mild soft tissue swelling of the l eft hand. IMPRESSION: Mild left hand soft tissue swelling. Diffuse osteopenia. No acute fracture or dislocation identified. If there is persistent clinical concern for a radiographically occult fracture, recommend immobilizat ion and repeat imaging in 10 to 14 days. Reviewed by: Arnaud David MD on 04/22/2023 3:37 PM PST Approved by: Arnaud David MD on 04/22/2023 3:37 PM PST Station ID: [id number]
[2023-04-22 15:45] LABS: ALBUMIN 4.7 g/dL (3.2-5.5); BILIRUBIN,TOTAL 0.8 mg/dL (0.2-1.0); CALCIUM 9.8 mg/dL (8.5-10.3); CREATININE 0.9 mg/dL (0.6-1.3); POTASSIUM 3.8 mmol/L (3.5-4.5)
[2023-04-22] MEDS ORDERED: iohexoL-300 100 ML VIAL ONE (16:33)
--- NOTE | 2023-04-22 17:29 | CT Report ---
PROCEDURE: Head WO INDICATIONS: Left eye swelling, GLF TECHNIQUE: Noncontrast 4.5 mm thick angled axial sections acquired from the foramen magnum to the vertex. For r adiation dose reduction, the following was used: automated exposure control, adjustment of mA and/or kV according to patient size. COMPARISON: Head CT 10/26/2022. FINDINGS: Image quality: Excellent. CSF spaces: Basal cisterns are patent. No extra-axial fluid collections. Ventricles are normal in size and shape. Brain: No midline shift. No intracranial masses or hemorrhage. White-white matter interface is norm al. Skull and face: Large hematoma at the left forehead scalp with hyperdense blood products. Left orbit preseptal swelling. Calvarium and visualized facial bones are intact, without suspicious lesions. Sinuses: Mild mucosal thickening at the left maxillary sinus partially visualized. Mastoids are clear . IMPRESSION: No acute intracranial hemorrhage. Large hematoma at the left forehead with hyperdense blood products. Left orbit preseptal swelling. Reviewed by: Rashad Varghese MD on 04/22/2023 5:27 PM PST Approved by: Rashad Varghese MD on 04/22/2023 5:27 PM PST Station ID: [id number]
--- NOTE | 2023-04-22 17:30 | CT Report ---
PROCEDURE: Cervical Spine WO INDICATIONS: neck pain post GLF TECHNIQUE: Noncontrast 3 mm thick sections acquired from the skull base to the T4 level. Sagittal and coronal r eformats were then constructed. Reformatted oblique axial images were performed through the disk leve ls. For radiation dose reduction, the following was used: automated exposure control, adjustment o f mA and/or kV according to patient size. COMPARISON: Correlation is made with the accompanying imaging. FINDINGS: Image quality: Motion artifact is noted. Bones: No fractures or dislocations. Visualized superior ribs are intact. Focal degenerative change can be seen involving the C1-C2 interface anteriorly. Moderate disc space n arrowing can be seen at C4-C5, C5-C6, and C6-C7. Posterior directed endplate osteophytes are seen, wh ich are worst at the C6-C7 level. Soft tissues: Prevertebral soft tissues are normal in thickness. No paravertebral hematomas. No ap ical pneumothoraces. IMPRESSION: Negative for acute cervical spine fracture. Multiple levels of underlying cervical spine degenerative change can be seen. Reviewed by: Mendoza Sky MD on 04/22/2023 4:28 PM [place] Approved by: Mendoza Sky MD on 04/22/2023 4:28 PM [facility] Station ID: [id number]
--- NOTE | 2023-04-22 17:35 | CT Report ---
PROCEDURE: Orbits W INDICATIONS: Left eye swelling, GLF CONTRAST: 100 cc Omnipaque 300 TECHNIQUE: After the administration of intravenous contrast, 2.0 mm axial images acquired through the orbits, wi th coronal reformatting. For radiation dose reduction, the following was used: automated exposure c ontrol, adjustment of mA and/or kV according to patient size. COMPARISON: Correlation is made with the accompanying imaging. FINDINGS: Image quality: Excellent. Orbits: Prominent left periorbital soft tissue hematoma can be seen, with fatty stranding. No findin gs of active extravasation can be seen. Preseptal orbital soft tissue swelling is seen. No definite p ost septal involvement can be seen. Globes are symmetrical. The optic nerves are normal in size and enhancement. No retrobulbar masses or fat abnormalities. The extra-ocular muscles are normal and symmetrical in appearance. Lacrimal g lands are normal. Optic chiasm is normal. Intracranial: The pituitary gland is normal, without sellar or suprasellar masses. Visualized cereb ral hemispheres, brainstem, and spinal cord appear normal. Bones and sinuses: There is a left orbital blowout fracture seen, as on series 7 image 40. No defini te entrapment of the left inferior oblique muscle can be seen. There is layering blood seen within the left maxillary sinus. Visualized calvarium and facial bones appear intact. IMPRESSION: There is a left orbital blowout fracture seen. No associated entrapment of the left infe rior orbital oblique muscle can be seen. Please correlate with prior examination. Associated layering blood can be seen within the left maxillary sinus. Extensive left periorbital soft tissue hematoma can be seen. No findings of active extravasation can be seen. There is associated preseptal swelling, without a post septal abnormality seen. Reviewed by: Mendoza Sky MD on 04/22/2023 4:34 PM [place] Approved by: Mendoza Sky MD on 04/22/2023 4:34 PM [facility] Station ID: [id number]
[2023-04-22 18:03] VITALS: BP 167/97; O2SAT 97
[2023-04-22] MEDS: iohexoL-300 100 ML VIAL IVP ONE (18:35)
[2023-04-22] MEDS: oxyCODONE 5 MG TABLET PO STA (18:42)
[2023-04-22] MEDS: ONDANSETRON ODT 4 MG Prepack 2 TL PRN (18:42)
[2023-04-22] MEDS: oxyCODONE/ACET 5/325 Prepack 4 PO STA (18:45)
== END 2023-04-22 18:55 | disposition home or self-care (01) ==
LOC: ED 12:49
DX: S09.90XA Unspecified injury of head, initial encounter (principal); S02.32XA Fracture of orbital floor, left side, initial encounter for closed fracture; S60.212A Contusion of left wrist, initial encounter; W18.30XA Fall on same level, unspecified, initial encounter
CPT/HCPCS: 36415; 70450; 70481; 72125; 73110; 80053; 85025; 96374; 99284; 99285; A9270; J1170; Q9967